=== PATIENT | female | born 1955 | race Caucasian/White ===

== ENCOUNTER 2020-11-11 08:34 | Day surgery (SDC) | payer MEDICARE, OTHER ==
[~2020-11-11] VITALS: Ht 162.6 cm; Wt 85.0 kg
[2020-11-11] MEDS ORDERED: sodium bicarbonate (8.4%) inj. 150 ML in dextrose 5%-water 1,000 ML IV ONE (09:10)
[2020-11-11 09:30] VITALS: BP 106/50
[2020-11-11] MEDS ORDERED: iohexol 300mg/ml 100ml inj. ONE (11:49)
--- NOTE | 2020-11-11 12:09 | NUR ---
Pt transported via WC to CT scan
--- NOTE | 2020-11-11 12:36 | NUR ---
Pt returned to room after CT scan, IV fluids resumed.
--- NOTE | 2020-11-11 16:57 | NUR ---
Report given to AIDA Herman
== END 2020-11-11 18:25 | disposition home or self-care (01) ==
LOC: SSTAY O 08:34
PROVIDERS: ATTEND Surgery
DX: R16.0 Hepatomegaly, not elsewhere classified (principal); K76.9 Liver disease, unspecified; R18.8 Other ascites
CPT/HCPCS: 74170; Q9967

== ENCOUNTER 2020-12-16 06:43 | Day surgery (SDC) | payer MEDICARE, OTHER ==
[~2020-12-16] VITALS: Ht 160 cm; Wt 71.3 kg
[~2020-12-16 06:43] MED LIST: FURO40TA4 PO; HYDR-3972 PO; LEVO750T46 PO; LORA-269 PO; LOSA50TA64 PO; METO-411 PO; PANT40TA54 PO; SPIR25TA5 PO
[2020-12-16] MEDS ORDERED: albumin 25% 100mL bottle x 1 IV PRN (07:15)
[2020-12-16] MEDS ORDERED: OXYC5CAP19 PO (07:23)
[2020-12-16] MEDS ORDERED: MELA1TAB28 PO (07:23)
[2020-12-16] MEDS ORDERED: OXYC10TA86 PO (07:23)
[2020-12-16] MEDS ORDERED: ALBU0.63 NEB (07:23)
[2020-12-16] MEDS ORDERED: TRAV5DRO EACHEYE (07:23)
[2020-12-16] MEDS ORDERED: ONDA4TAB6 PO (07:23)
[2020-12-16 07:34] VITALS: BP 112/65
[2020-12-16 09:00] VITALS: BP 98/62
[2020-12-16 09:15] VITALS: BP 95/61
[2020-12-16 09:30] VITALS: BP 91/37
[2020-12-16 09:45] VITALS: BP 97/64
[2020-12-16 09:52] VITALS: BP 105/67
== END 2020-12-16 10:00 | disposition home or self-care (01) ==
LOC: SSTAY O 06:43
PROVIDERS: ATTEND Radiology Vascular & Interventional Radiology
DX: R18.8 Other ascites (principal); I10 Essential (primary) hypertension; K21.9 Gastro-esophageal reflux disease without esophagitis; C78.7 Secondary malignant neoplasm of liver and intrahepatic bile duct; Z98.890 Other specified postprocedural states; Z98.49 Cataract extraction status, unspecified eye; Z85.43 Personal history of malignant neoplasm of ovary; Z88.0 Allergy status to penicillin; Z79.899 Other long term (current) drug therapy
CPT/HCPCS: 49083

== ENCOUNTER 2021-02-06 08:10 | Day surgery (SDC) | payer MEDICARE, OTHER ==
[~2021-02-06] VITALS: Ht 160 cm; Wt 65.3 kg
[2021-02-06] VITALS (8 sets, daily range): BP systolic 90–136; BP diastolic 52–90
[~2021-02-06 08:10] MED LIST changes: +ALBU0.63 NEB; -HYDR-3972 PO; -LEVO750T46 PO; +MELA1TAB28 PO; +ONDA4TAB6 PO; +OXYC10TA86 PO; +OXYC5CAP19 PO; +TRAV5DRO EACHEYE
[2021-02-06] MEDS ORDERED: albumin 25% 100mL bottle x 1 IV PRN (08:35)
[2021-02-06] MEDS ORDERED: POTA10TA19 PO (09:06)
[2021-02-06] MEDS ORDERED: LATA2.5D22 EACHEYE (09:06)
[2021-02-06] MEDS ORDERED: MORP15TA PO (09:06)
[2021-02-06] MEDS ORDERED: MORP-92 PO (09:06)
[2021-02-06] MEDS ORDERED: ATI1T PO (09:06)
[2021-02-06] MEDS ORDERED: PROC-8 PO (09:06)
[2021-02-06] MEDS ORDERED: chemotherapy IV (09:06)
[2021-02-06] MEDS ORDERED: SPIR25TA PO (09:07)
== END 2021-02-06 11:00 | disposition home or self-care (01) ==
LOC: SSTAY O 08:10
PROVIDERS: ATTEND Radiology Vascular & Interventional Radiology
DX: R18.8 Other ascites (principal); R14.0 Abdominal distension (gaseous); I10 Essential (primary) hypertension; K21.9 Gastro-esophageal reflux disease without esophagitis; Z98.890 Other specified postprocedural states; Z88.0 Allergy status to penicillin; Z85.43 Personal history of malignant neoplasm of ovary; Z79.899 Other long term (current) drug therapy
CPT/HCPCS: 49083; P9047

== ENCOUNTER 2021-02-28 08:35 | Day surgery (SDC) | payer MEDICARE, OTHER ==
[2021-02-28] VITALS (7 sets, daily range): BP systolic 112–131; BP diastolic 70–85
[~2021-02-28] VITALS: Ht 160 cm; Wt 63.8 kg
[~2021-02-28 08:35] MED LIST changes: +ATI1T PO; +LATA2.5D22 EACHEYE; -LORA-269 PO; -LOSA50TA64 PO; +MORP-92 PO; +MORP15TA PO; -OXYC10TA86 PO; -OXYC5CAP19 PO; +POTA10TA19 PO; +PROC-8 PO; +SPIR25TA PO; -SPIR25TA5 PO; -TRAV5DRO EACHEYE; +chemotherapy IV
[2021-02-28] MEDS ORDERED: albumin 25% 100mL bottle x 1 IV PRN (09:10)
== END 2021-02-28 11:22 | disposition home or self-care (01) ==
LOC: SSTAY O 08:35
PROVIDERS: ATTEND Radiology Vascular & Interventional Radiology
DX: R18.8 Other ascites (principal); I10 Essential (primary) hypertension; K21.9 Gastro-esophageal reflux disease without esophagitis; Z85.43 Personal history of malignant neoplasm of ovary; Z98.890 Other specified postprocedural states; Z88.0 Allergy status to penicillin; Z79.899 Other long term (current) drug therapy
CPT/HCPCS: 49083

== ENCOUNTER 2021-03-25 11:01 | Day surgery (SDC) | payer MEDICARE, OTHER ==
[2021-03-25] VITALS (22 sets, daily range): BP systolic 95–156; BP diastolic 52–102
[~2021-03-25] VITALS: Ht 160 cm; Wt 62.2 kg
[~2021-03-25 11:01] MED LIST changes: -METO-411 PO; -MORP15TA PO
[2021-03-25] MEDS ORDERED: normal saline 1000ml 1,000 ML IV PRN (11:45)
[2021-03-25 12:27] LABS: BASOPHILS % (AUTO) 0.5 % (0-1); EOSINOPHILS # (AUTO) 0.1 X10'3 (0-0.9); EOSINOPHILS % (AUTO) 1.7 % (0-6); HEMATOCRIT 27.3 % (35.0-45.0); HEMOGLOBIN 9.2 g/dl (12.0-16.0); LYMPHOCYTES # (AUTO) 0.9 X10'3 (1.1-4.8); LYMPHOCYTES % (AUTO) 15.6 % (21-51); MEAN CORPUSCULAR HEMOGLOBIN 32.3 PG (27.0-31.0); MEAN CORPUSCULAR HGB CONC 33.6 g/dL (33.0-36.5); MEAN CORPUSCULAR VOLUME 96.2 FL (78-98); MEAN PLATELET VOLUME 7.7 FL (7.4-10.4); MONOCYTES # (AUTO) 0.5 X10'3 (0-0.9); MONOCYTES % (AUTO) 7.8 % (2-12); NEUTROPHILS # (AUTO) 4.4 X10'3 (1.8-7.7); NEUTROPHILS % (AUTO) 74.4 % (42-75); PLATELET COUNT 299 X10'3 (140-440); RED BLOOD COUNT 2.84 X10'6 (4.20-5.60); RED CELL DISTRIBUTION WIDTH 23.1 % (11.5-14.5); WHITE BLOOD COUNT 5.9 X10'3 (4.5-11.0)
[2021-03-25] MEDS ORDERED: LACT10SO3 PO (12:55)
[2021-03-25] MEDS ORDERED: POTA20TA19 PO (12:55)
[2021-03-25] MEDS ORDERED: Morphine IR PO (12:55)
[2021-03-25] MEDS ORDERED: midazolam 1 mg/ML 2ml injection ONE ×2 (13:44→14:02)
[2021-03-25] MEDS ORDERED: fentaNYL/PF 50MCG/1 ML 2ML syringe ONE ×2 (13:44→14:03)
[2021-03-25] MEDS ORDERED: gelatin sponge, absorbable (Gelfoam 12-7MM) sponge TP ONE (14:30)
[2021-03-25 14:58] LABS: PLATELET ESTIMATE NORMAL
[2021-03-25 14:59] LABS: ANISOCYTOSIS 3+
[2021-03-25 15:07] LABS: ELLIPTOCYTES FEW; STOMATOCYTES 1+
[2021-03-25] MEDS ORDERED: HYDROcodone/acetaminophen 5mg/325mg tablet PO PRN ×2 (15:40)
[2021-03-25] MEDS ORDERED: sodium chloride 0.45% 1,000 ML IV SCH (15:40)
== END 2021-03-25 18:00 | disposition home or self-care (01) ==
LOC: SSTAY O 11:01
PROVIDERS: ATTEND Radiology Vascular & Interventional Radiology
DX: K76.89 Other specified diseases of liver (principal); R18.8 Other ascites; C78.7 Secondary malignant neoplasm of liver and intrahepatic bile duct; C56.9 Malignant neoplasm of unspecified ovary; Z20.822 Contact with and (suspected) exposure to COVID-19; Z88.0 Allergy status to penicillin; Z79.899 Other long term (current) drug therapy
CPT/HCPCS: 36415; 47000; 49083; 76942; 85025; 87635; 99152; 99153; C9803; J2250; J3010; 85008

== ENCOUNTER 2021-05-26 08:25 | Day surgery (SDC) | payer MEDICARE, OTHER ==
[~2021-05-26] VITALS: Ht 160 cm; Wt 63.8 kg
[~2021-05-26 08:25] MED LIST changes: +LACT10SO3 PO; +Morphine IR PO; -POTA10TA19 PO; +POTA20TA19 PO
[2021-05-26] MEDS ORDERED: albumin 25% 100mL bottle x 1 IV PRN (08:55)
[2021-05-26 09:21] VITALS: BP 158/103
[2021-05-26] MEDS ORDERED: pneumococcal 23-VAL P-sac vacc 25 mcg/0.5ml vial IMVAC ONE (09:30)
[2021-05-26 10:38] VITALS: BP 138/78
[2021-05-26 11:05] VITALS: BP 158/103
== END 2021-05-26 11:30 | disposition home or self-care (01) ==
LOC: SSTAY O 08:25
PROVIDERS: ATTEND Preventive Medicine Aerospace Medicine
DX: R18.8 Other ascites (principal); R14.0 Abdominal distension (gaseous); I10 Essential (primary) hypertension; K21.9 Gastro-esophageal reflux disease without esophagitis; G40.909 Epilepsy, unspecified, not intractable, without status epilepticus; Z85.43 Personal history of malignant neoplasm of ovary; Z98.49 Cataract extraction status, unspecified eye; Z98.890 Other specified postprocedural states; F17.210 Nicotine dependence, cigarettes, uncomplicated; Z88.0 Allergy status to penicillin; Z79.899 Other long term (current) drug therapy
CPT/HCPCS: 49083